=== PATIENT | female | born 1995 | race Caucasian/White ===

== ENCOUNTER 2020-10-21 10:35 | Emergency (ER) | payer MEDICAID, SELFPAY ==
--- NOTE | 2020-10-21 10:41 | ED.ABDPAIN ---
HPI - Abdominal Pain General Chief Complaint: Abdominal Pain Stated Complaint: ABD PAIN Time Seen by Provider: 10/21/20 10:41 Source: patient Mode of arrival: ambulatory Limitations: no limitations History of Present Illness HPI narrative: one week of palpitations and epigastric pain. Diarrhea for a week. No fever. Patient has sharp pain when she eats MD elicited complaint: abdominal pain Pertinent past history: none Onset (ago): day(s) Pain Consistency: intermittent Location: epigastric Severity: mild Quality: sharp Radiation: none Migration to: no migration Exacerbating factors: eating Relieving factors: nothing Associated symptoms: diarrhea and other (palpitations) Related Data Previous Rx's Medication Instructions Recorded famotidine [Pepcid] 20 mg PO DAILY #20 tab 10/21/20 Allergies Allergy/AdvReac Type Severity Reaction Status Date / Time No Known Allergies Allergy Verified 10/21/20 10:46 Review of Systems Constitutional: Reports no additional constitutional complaints Eyes: Reports no additional eye complaints Denies dizziness Cardiovascular: Reports no additional cardiovascular complaints Respiratory: Reports as per HPI Gastrointestinal: Reports no additional gastrointestinal complaints Genitourinary: Reports no additional female genitourinary complaints Musculoskeletal: Reports no additional musculoskeletal complaints Skin/Breast: Denies rash Reports system reviewed and no additional complaints, except as documented, Denies dizziness and Denies Sensory deficit (Neuro) Psychiatric: Denies anxiety Physical Exam Vital Signs: Vital Signs: Last Vital Signs Temp 98.3 F 10/21/20 10:42 Pulse 75 10/21/20 10:42 Resp 14 10/21/20 10:42 BP 143/72 H 10/21/20 10:42 Pulse Ox 99 10/21/20 10:42 Body Mass Index 27.1 Const: General: healthy appearing Nutritional Appearance: average body habitus Orientation/consciousness: oriented to person and patient oriented x3 Limitations: no limitations HENMT: Head: Yes normal to inspection Ears: external ears normal General nose exam: Normal external nose present Mouth: Normal oral and palatal mucosa present and oropharynx normal Throat: Yes posterior oropharynx normal Eyes: General: appearance normal, both eyes and all related structures Neck: Other: supple Neck: Yes normal visual inspection Chest: Chest palpation & inspection: normal inspection of the chest Resp: Auscultation: clear to auscultation bilaterally Cardio: Jugular venous distension: no JVD Rate: regular rate Rhythm: regular rhythm Heart sounds: S1 normal heart sound present and S2 normal heart sound present GI: Inspection: Yes normal to inspection Palpation (GI): Soft to palpation, nontender and No hepatosplenomegaly present Auscultation: normal bowel sounds : General: Yes no CVA tenderness Back/Spine/Pelvis: Back: no CVA tenderness Skin: General skin exam: no rashes or lesions noted Neuro: General: oriented to person and patient oriented x3 Cranial nerves: Yes CN's II-XII intact bilaterally Motor exam (neuro): 5/5 motor strength present throughout Sensory Exam: No Sensory deficit (Neuro) Extrem: General: Yes normal to inspection Psych: Appearance: grossly normal Course Reevaluation(s) Reevaluation #1: Patient with normal labs and ekg, mild epigastric pain. Will start pepcid for gastritis Time: 12:09 MDM - Abdominal Pain Lab Data Result diagrams: 10/21/20 11:05 10/21/20 11:05 Labs: Lab Results 10/21/20 10/21/20 10/21/20 Range/Units 11:05 11:05 11:05 WBC 6.8 (4.8-10.8) X10*3/uL RBC 4.63 (4.20-5.50) X10*6/uL Hgb 14.6 (12.0-16.0) g/dl Hct 42.8 (37-47) % MCV 92.4 (80-98) fL MCH 31.5 (27.0-33.0) pg MCHC 34.1 (31.0-35.0) g/dl RDW 11.9 (11.0-16.0) % Plt Count 357 (160-400) X10*3/uL MPV 8.9 L (9.4-12.3) fL Immature Gran % (Auto) 0.3 (0.0-0.4) % Neut % (Auto) 29.3 L (45-73) % Lymph % (Auto) 59.4 H (20-40) % [place] % (Auto) 9.2 (2-11) % Eos % (Auto) 1.5 (0-4) % Baso % (Auto) 0.3 (0-2) % Lymph # (Auto) 4.0 (1.2-4.9) X10*3/uL [place] # (Auto) 0.6 (0.1-1.2) X10*3/uL Eos # (Auto) 0.1 (0.0-0.4) X10*3/uL Baso # (Auto) 0.0 (0.0-0.2) X10*3/uL Abs Immat Gran (auto) 0.02 (0.00-0.03) X10*3/uL Absolute Neuts (auto) 2.0 (2.0-8.3) X10*3/uL Absolute Nucleated RBC 0.000 (0.0-0.012) X10*3/uL Nucleated RBC % (auto) 0.0 (0.0-0.2) /100WBC Sodium 140 (135-145) mmol/L Potassium 3.9 (3.3-5.1) mmol/L Chloride 106 (96-108) mmol/L Carbon Dioxide 25 (22-29) mmol/L Anion Gap 13 (12-20) BUN 8 L (9-16) mg/dL Creatinine 0.80 (0.5-1.4) mg/dL Estim Creat Clear Calc 98.7 Estimated GFR > 60 Random Glucose 88 (60-115) mg/dL Calcium 9.7 (8.4-10.2) mg/dL Total Bilirubin 0.3 (0.0-1.0) mg/dL Direct Bilirubin < 0.2 (0.0-0.5) mg/dL AST 13 (5-31) U/L ALT 10 (0-31) U/L Alkaline Phosphatase 73 (39-117) U/L Total Protein 7.3 (6.5-8.0) g/dL Albumin 4.4 (3.5-5.0) g/dL Lipase 55 (8-78) U/L Urine Color YELLOW Urine Appearance CLEAR Urine pH 6.0 (5.0-8.0) Ur Specific [place] 1.025 (1.005-1.025) Urine Protein NEG (NEG-TRACE) MG/DL Urine Glucose (UA) NEG (NEG) MG/DL Urine Ketones NEG (NEG) MG/DL Urine Blood NEG (NEG) Urine Nitrite NEG (NEG) Ur Leukocyte Esterase NEG (NEG) Urine Test (NEGATIVE) 10/21/20 Range/Units 11:05 WBC (4.8-10.8) X10*3/uL RBC (4.20-5.50) X10*6/uL Hgb (12.0-16.0) g/dl Hct (37-47) % MCV (80-98) fL MCH (27.0-33.0) pg MCHC (31.0-35.0) g/dl RDW (11.0-16.0) % Plt Count (160-400) X10*3/uL MPV (9.4-12.3) fL Immature Gran % (Auto) (0.0-0.4) % Neut % (Auto) (45-73) % Lymph % (Auto) (20-40) % [place] % (Auto) (2-11) % Eos % (Auto) (0-4) % Baso % (Auto) (0-2) % Lymph # (Auto) (1.2-4.9) X10*3/uL [place] # (Auto) (0.1-1.2) X10*3/uL Eos # (Auto) (0.0-0.4) X10*3/uL Baso # (Auto) (0.0-0.2) X10*3/uL Abs Immat Gran (auto) (0.00-0.03) X10*3/uL Absolute Neuts (auto) (2.0-8.3) X10*3/uL Absolute Nucleated RBC (0.0-0.012) X10*3/uL Nucleated RBC % (auto) (0.0-0.2) /100WBC Sodium (135-145) mmol/L Potassium (3.3-5.1) mmol/L Chloride (96-108) mmol/L Carbon Dioxide (22-29) mmol/L Anion Gap (12-20) BUN (9-16) mg/dL Creatinine (0.5-1.4) mg/dL Estim Creat Clear Calc Estimated GFR Random Glucose (60-115) mg/dL Calcium (8.4-10.2) mg/dL Total Bilirubin (0.0-1.0) mg/dL Direct Bilirubin (0.0-0.5) mg/dL AST (5-31) U/L ALT (0-31) U/L Alkaline Phosphatase (39-117) U/L Total Protein (6.5-8.0) g/dL Albumin (3.5-5.0) g/dL Lipase (8-78) U/L Urine Color Urine Appearance Urine pH (5.0-8.0) Ur Specific [place] (1.005-1.025) Urine Protein (NEG-TRACE) MG/DL Urine Glucose (UA) (NEG) MG/DL Urine Ketones (NEG) MG/DL Urine Blood (NEG) Urine Nitrite (NEG) Ur Leukocyte Esterase (NEG) Urine Test NEGATIVE (NEGATIVE) ECG Data Attestation: I personally reviewed and interpreted this ECG as follows: Interpretation: sinus rate of 75, no st or twave changes Discharge Plan Discharge Clinical Impression: Abdominal pain Qualifiers: Abdominal location: epigastric Qualified Code(s): R10.13 - Epigastric pain Gastritis Qualifiers: Gastritis type: other gastritis Chronicity: acute Gastritis bleeding: without bleeding Qualified Code(s): K29.00 - Acute gastritis without bleeding Patient Disposition: Home, Self-Care Instructions: Gastritis (ED) Prescriptions: New famotidine [Pepcid] 20 mg tablet 20 mg PO DAILY Qty: 20 RF: 0 PMFSH Past Medical History Medical History (Updated 10/21/20 @ 12:10 by Geovany Connell MD) No known health problems Social History Social History Advance Directives: No Advance Directives Information Provided: Yes
[2020-10-21 10:42] VITALS: BP 143/72; PULSE 75; RESP 14; TEMP 36.8; O2SAT 99; BMI 27.1
--- NOTE | 2020-10-21 10:46 | ECG_ITS ---
Test Reason : ABDOMINAL PAIN Blood Pressure : / mmHG Vent. Rate : 076 BPM Atrial Rate : 076 BPM P-R Int : 136 ms QRS Dur : 086 ms QT Int : 368 ms P-R-T Axes : 052 051 052 degrees QTc Int : 414 ms Normal sinus rhythm Normal ECG No previous ECGs available Referred By: Geovany Connell Electronically Signed By:VETO ISLAS MD
[2020-10-21] MEDS: Lidocaine HCl Viscous 2 % 15 ML SOLUTION MUCOUS MEM (10:55)
[2020-10-21] MEDS: Famotidine 20 MG TABLET PO (10:55)
[2020-10-21] MEDS: PHENobarb/Hyoscy/Atropine/Scop 10 ML ELIXIR PO (10:55)
[2020-10-21] MEDS: Magnesium Hydrox/Alum Hydrox 30 ML ORAL.SUSP PO (10:55)
[2020-10-21 11:12] LABS: MANUAL DIFF FLAG NO
[2020-10-21 11:14] LABS: Basophils Percent Auto 0.3 % (0-2); Eosinophils Absolute Auto 0.1 X10*3/uL (0.0-0.4); Eosinophils Percent Auto 1.5 % (0-4); Hematocrit 42.8 % (37-47); Hemoglobin 14.6 g/dl (12.0-16.0); Imm Gran Abs Auto 0.02 X10*3/uL (0.00-0.03); Imm Gran Pct Auto 0.3 % (0.0-0.4); Lymphocytes Percent Auto 59.4 % (20-40); Mean Corpuscular HGB Conc 34.1 g/dl (31.0-35.0); Mean Corpuscular Hemoglobin 31.5 pg (27.0-33.0); Mean Corpuscular Volume 92.4 fL (80-98); Mean Platelet Volume 8.9 fL (9.4-12.3); Monocytes Absolute Auto 0.6 X10*3/uL (0.1-1.2); Monocytes Percent Auto 9.2 % (2-11); Neutrophils Percent Auto 29.3 % (45-73); Platelet Count 357 X10*3/uL (160-400); Red Blood Count 4.63 X10*6/uL (4.20-5.50); Red Cell Distribution Width 11.9 % (11.0-16.0); White Blood Count 6.8 X10*3/uL (4.8-10.8)
[2020-10-21 11:15] LABS: Glucose Urine UA NEG (NEG); Leukocyte Esterase Urine NEG (NEG); Nitrite Urine NEG (NEG); Specific Gravity - Urine 1.025 (1.005-1.025); Urine Blood NEG (NEG); Urine Ketones NEG (NEG); Urine Protein NEG (NEG-TRACE)
[2020-10-21 11:17] LABS: Appearance Urine CLEAR; Color Urine YELLOW; UPreg QC Valid YES; Urine Pregnancy NEGATIVE (NEGATIVE)
[2020-10-21 11:40] LABS: Alanine Aminotransferase 10 U/L (0-31); Albumin Level 4.4 g/dL (3.5-5.0); Alkaline Phosphatase 73 U/L (39-117); Anion Gap 13 (12-20); Aspartate Amino Transferase 13 U/L (5-31); Bilirubin Direct < 0.2 mg/dL (0.0-0.5); Bilirubin Total 0.3 mg/dL (0.0-1.0); Blood Urea Nitrogen 8 mg/dL (9-16); Calcium 9.7 mg/dL (8.4-10.2); Carbon Dioxide 25 mmol/L (22-29); Chloride 106 mmol/L (96-108); Creatinine Clr Calc Pharmacy 98.7; Estimated Glomerular Filt Rate > 60; Glucose Random 88 mg/dL (60-115); Lipase 55 U/L (8-78); Potassium 3.9 mmol/L (3.3-5.1); Sodium 140 mmol/L (135-145); Total Protein 7.3 g/dL (6.5-8.0)
== END 2020-10-21 12:38 | disposition home or self-care (01) ==
PROVIDERS: Emergency Provider Emergency Medicine
DX: R10.13 Epigastric pain (principal); K29.00 Acute gastritis without bleeding
CPT/HCPCS: 36415; 80048; 80076; 81003; 81025; 83690; 85025; 93005; 99284

== ENCOUNTER 2020-10-31 10:50 | Emergency (ER) | payer MEDICAID, SELFPAY ==
--- NOTE | ~2020-10-31 | US_ITS ---
EXAMINATION: ULTRASOUND OF LEFT KIDNEY. CLINICAL INFORMATION: Left flank pain. COMPARISON: None TECHNIQUE: Grayscale and color Doppler exam performed at the left kidney only. FINDINGS: There is no hydronephrosis. No renal calculus. The kidney is of normal size and contour with normal cortical thickness and normal echogenicity of the cortex. No fluid collections in the perinephric space. Left kidney measures 9.3 x 5.4 x 4.4 cm. US/US renal LT IMPRESSION: Normal ultrasound of left kidney.
--- NOTE | ~2020-10-31 | US_ITS ---
EXAMINATION: ULTRASOUND PELVIC, COMPLETE CLINICAL INFORMATION: Left lower quadrant pain. COMPARISON: None. TECHNIQUE: Transvaginal: Used to better visualize pelvic structures Transabdominal: Not adequate for visualization Spectral Doppler and color Doppler exam was utilized. LMP: 09/23/2020 FINDINGS: UTERUS: Uterus is unremarkable. Uterus measures 8.6 x 4.1 x 5.8 cm. Endometrial thickness 1.1 cm. Uterus is anteverted and anteflexed. There is nabothian cyst at the cervix ADNEXA: Ovarian vascularity:Doppler demonstrates both arterial and venous vascular flow in the right and left ovary. No evidence of ovarian torsion. Right Ovary: 4.1 x 2.1 x 2 cm. Volume 9.0 mL Left Ovary: 3.9 x 2.4 x 2.4 cm. Volume 11.8 mL. Corpus luteum cyst measuring 1.2 cm. Cul-de-sac: Small volume of anechoic fluid in the cul-de-sac. US/US pelvic and transvaginal IMPRESSION: Normal ultrasound of the pelvis. Corpus luteum cyst present in the left ovary.
--- NOTE | ~2020-10-31 | US_ITS ---
EXAMINATION: ULTRASOUND PELVIC, COMPLETE CLINICAL INFORMATION: Left lower quadrant pain. COMPARISON: None. TECHNIQUE: Transvaginal: Used to better visualize pelvic structures Transabdominal: Not adequate for visualization Spectral Doppler and color Doppler exam was utilized. LMP: 09/23/2020 FINDINGS: UTERUS: Uterus is unremarkable. Uterus measures 8.6 x 4.1 x 5.8 cm. Endometrial thickness 1.1 cm. Uterus is anteverted and anteflexed. There is nabothian cyst at the cervix ADNEXA: Ovarian vascularity:Doppler demonstrates both arterial and venous vascular flow in the right and left ovary. No evidence of ovarian torsion. Right Ovary: 4.1 x 2.1 x 2 cm. Volume 9.0 mL Left Ovary: 3.9 x 2.4 x 2.4 cm. Volume 11.8 mL. Corpus luteum cyst measuring 1.2 cm. Cul-de-sac: Small volume of anechoic fluid in the cul-de-sac. US/US pelvic ovarian doppler IMPRESSION: Normal ultrasound of the pelvis. Corpus luteum cyst present in the left ovary.
[2020-10-31 11:42] VITALS: BP 117/80; PULSE 72; RESP 18; TEMP 37; O2SAT 99; BMI 27.8
[2020-10-31 15:00] LABS: Glucose Urine UA NEG (NEG); Leukocyte Esterase Urine NEG (NEG); Nitrite Urine NEG (NEG); Specific Gravity - Urine 1.025 (1.005-1.025); Urine Blood NEG (NEG); Urine Ketones 15 MG/DL (NEG); Urine Protein NEG (NEG-TRACE)
--- NOTE | 2020-10-31 15:01 | ED_ITS ---
HPI - Abdominal Pain General Chief Complaint: Abdominal Pain Stated Complaint: abd pain Time Seen by Provider: 10/31/20 14:38 Source: patient Mode of arrival: ambulatory Limitations: no limitations History of Present Illness HPI narrative: 25-year-old female who presents emergency department for evaluation of a positive home test and lower abdominal pain. The patient is a , she has a 6-year-old, she states that her last menstrual period was 09/23/2020 (she would be 5 weeks and 3 days if her prior to the test was accurate). The patient took a home test 4 days prior and it was positive. She states that 2 days prior to evaluation she developed left- sided abdominal pain. She points to her left lower quadrant when asked to localize the pain. The pain is an intermittent pressure-like pain that does radiate to her back. The pain is 6/10 at its worst. She has had urinary frequency but no dysuria. She has had associated nausea but no vomiting. She states that the pain got worse today, therefore she came to the emergency department for evaluation. She states that she has had occasional headaches. She denied fever which chills, chest pain, shortness of breath, change in bowel movements. Related Data Previous Rx's Medication Instructions Recorded famotidine 20 mg tablet (Pepcid) 20 mg PO DAILY #20 tab 10/21/20 Allergies Allergy/AdvReac Type Severity Reaction Status Date / Time No Known Allergies Allergy Verified 10/21/20 10:46 Review of Systems Review of Systems Yes all other systems are reviewed and are negative Physical Exam Vital Signs: Vital Signs: Last Vital Signs Temp 98.6 F 10/31/20 11:42 Pulse 72 10/31/20 11:42 Resp 18 10/31/20 11:42 BP 117/80 10/31/20 11:42 Pulse Ox 99 10/31/20 11:42 Body Mass Index 27.8 Const: General: cooperative and no acute distress Or ientation/consciousness: oriented to person and oriented to place Limitat ions: no limitations HENMT: Head: Yes normal to inspection, Yes normocephalic and Yes atraumatic Ears: external ears normal General nose exam: Normal external nose present Face and sinus: Yes normal facial exam Mouth: Normal oral and palatal mucosa present Throat: Yes posterior oropharynx normal Eyes: General: appearance normal, both eyes and all related structures Pupils: Equal, round and reactive pupils present Neck: Neck: Yes normal visual inspection, Yes no lymphadenopathy, Yes trachea midline and Yes supple Chest: Chest palpation & inspection: normal inspection of the chest and normal palpation of entire chest wall Resp: Effort & Inspection: normal respiratory effort and able to speak in complete sentences Auscultation: clear to auscultation bilaterally Cardio: Rate: regular rate Rhythm: regular rhythm Heart sounds: S1 normal heart sound present, S2 normal heart sound present and no murmurs GI: Inspection: Yes normal to inspection Palpation (GI): Soft to palpation, Tenderness to palpation present (GI) (Moderate) in the LLQ (Moderate) and suprapubicly (Moderate) and no guarding Auscultation: normal bowel sounds : General: Yes no CVA tenderness Back/Spine/Pelvis: Back: no CVA tenderness Skin: General skin exam: no rashes or lesions noted Neuro: General: oriented to person and oriented to place Cranial nerves: Yes CN's II-XII intact bilaterally and Yes Equal, round and reactive pupils present Cognition (Neuro): normal cognition Motor exam (neuro): 5/5 motor strength present throughout Extrem: General: Yes normal to inspection Psych: Appearance: grossly normal Speech and movement: Normal speech and movement present Affect: normal affect Attitude: cooperative Thought process: Normal thought process present Thought content: Normal thought con tent present Course Course Course Narrative: 25-year-old female who presents emergency department for evaluation of a positive home test which she performed 4 days prior and left lower abdominal pain x2 days. Patient's last menstrual period was 09/23/2020 which would make her 5 weeks and 3 days there for test was accurate. The patient's examination did reveal left lower quadrant tenderness and suprapubic tenderness. I did order laboratory evaluation to include CBC, CMP, lipase. UA, urine , quantitative beta-hCG and ABO. Patient will be treated with Tylenol 975 mg orally. MDM - Abdominal Pain Lab Data Result diagrams: 10/31/20 16:19 10/31/20 16:20 Labs: Lab Results 10/31/20 10/31/20 10/31/20 Range/Units 14:48 14:48 16:19 WBC 6.3 (4.8-10.8) X10*3/uL RBC 4.61 (4.20-5.50) X10*6/uL Hgb 14.5 (12.0-16.0) g/dl Hct 42.0 (37-47) % MCV 91.1 (80-98) fL MCH 31.5 (27.0-33.0) pg MCHC 34.5 (31.0-35.0) g/dl RDW 11.7 (11.0-16.0) % Plt Count 331 (160-400) X10*3/uL MPV 9.1 L (9.4-12.3) fL Immature Gran % (Auto) 0.5 H (0.0-0.4) % Neut % (Auto) 47.9 (45-73) % Lymph % (Auto) 42.9 H (20-40) % [place] % (Auto) 7.9 (2-11) % Eos % (Auto) 0.6 (0-4) % Baso % (Auto) 0.2 (0-2) % Lymph # (Auto) 2.7 (1.2-4.9) X10*3/uL [place] # (Auto) 0.5 (0.1-1.2) X10*3/uL Eos # (Auto) 0.0 (0.0-0.4) X10*3/uL Baso # (Auto) 0.0 (0.0-0.2) X10*3/uL Abs Immat Gran (auto) 0.03 (0.00-0.03) X10*3/uL Absolute Neuts (auto) 3.0 (2.0-8.3) X10*3/uL Absolute Nucleated RBC 0.000 (0.0-0.012) X10*3/uL Nucleated RBC % (auto) 0.0 (0.0-0.2) /100WBC Sodium (135-145) mmol/L Potassium (3.3-5.1) mmol/L Chloride (96-108) mmol/L Carbon Dioxide (22-29) mmol/L Anion Gap (12-20) BUN (9-16) mg/dL Creatinine (0.5-1.4) mg/dL Estim Creat Clear Calc Estimated GFR Random Glucose (60-115) mg/dL Calcium (8.4-10.2) mg/dL Total Bilirubin (0.0-1.0) mg/dL AST (5-31) U/L ALT (0-31) U/L Alkaline Phosphatase (39-117) U/L Total Protein (6.5-8.0) g/dL Albumin (3.5-5.0) g/dL Lipase (8-78) U/L Beta HCG, Quant mIU/mL Urine Color YELLOW Urine Appearance CLEAR Urine pH 6.0 (5.0-8.0) Ur Specific [place] 1.025 (1.005-1.025) Urine Protein NEG (NEG-TRACE) MG/DL Urine Glucose (UA) NEG (NEG) MG/DL Urine Ketones 15 (NEG) MG/DL Urine Blood NEG (NEG) Urine Nitrite NEG (NEG) Ur Leukocyte Esterase NEG (NEG) Urine Test NEGATIVE (NEGATIVE) Blood Type 10/31/20 10/31/20 10/31/20 Range/Units 16:19 16:19 16:20 WBC (4.8-10.8) X10*3/uL RBC (4.20-5.50) X10*6/uL Hgb (12.0-16.0) g/dl Hct (37-47) % MCV (80-98) fL MCH (27.0-33.0) pg MCHC (31.0-35.0) g/dl RDW (11.0-16.0) % Plt Count (160-400) X10*3/uL MPV (9.4-12.3) fL Immature Gran % (Auto) (0.0-0.4) % Neut % (Auto) (45-73) % Lymph % (Auto) (20-40) % [place] % (Auto) (2-11) % Eos % (Auto) (0-4) % Baso % (Auto) (0-2) % Lymph # (Auto) (1.2-4.9) X10*3/uL [place] # (Auto) (0.1-1.2) X10*3/uL Eos # (Auto) (0.0-0.4) X10*3/uL Baso # (Auto) (0.0-0.2) X10*3/uL Abs Immat Gran (auto) (0.00-0.03) X10*3/uL Absolute Neuts (auto) (2.0-8.3) X10*3/uL Absolute Nucleated RBC (0.0-0.012) X10*3/uL Nucleated RBC % (auto) (0.0-0.2) /100WBC Sodium 137 (135-145) mmol/L Potassium 4.0 (3.3-5.1) mmol/L Chloride 105 (96-108) mmol/L Carbon Dioxide 25 (22-29) mmol/L Anion Gap 11 L (12-20) BUN 8 L (9-16) mg/dL Creatinine 0.74 (0.5-1.4) mg/dL Estim Creat Clear Calc 108.0 Estimated GFR > 60 Random Glucose 95 (60-115) mg/dL Calcium 9.3 (8.4-10.2) mg/dL Total Bilirubin 0.7 (0.0-1.0) mg/dL AST 16 (5-31) U/L ALT 14 (0-31) U/L Alkaline Phosphatase 64 (39-117) U/L Total Protein 7.1 (6.5-8.0) g/dL Albumin 4.4 (3.5-5.0) g/dL Lipase 38 (8-78) U/L Beta HCG, Quant 12 mIU/mL Urine Color Urine Appearance Urine pH (5.0-8.0) Ur Specific [place] (1.005-1.025) Urine Protein (NEG-TRACE) MG/DL Urine Glucose (UA) (NEG) MG/DL Urine Ketones (NEG) MG/DL Urine Blood (NEG) Urine Nitrite (NEG) Ur Leukocyte Esterase (NEG) Urine Test (NEGATIVE) Blood Type AB Positive Discharge Plan Discharge Clinical Impression: Acute left flank pain Abdominal pain Qualifiers: Abdominal location: left lower quadrant Qualified Code(s): R10.32 - Left lower quadrant pain Patient Disposition: Home, Self-Care Instructions: Flank Pain (ED) Additional Instructions: Your urine test was negative for infections. Your blood work was normal. Your urine test was negative. We checked your blood to see if you are . The blood test checks for a hormone called beta-hCG. This is a hormone that babies make and usually it is undetectable in women that are not . Sometimes, women that are not do make this hormone and this can cause false positive test. When a woman is 4-6 weeks the beta-hCG is between 2000 and 3000. Your beta hCG today was 12. At this time I do not think that you are however if you do not have a menstrual period in 2-3 weeks then you need a repeat blood test (quantitative beta-hCG) by your direct entry midwife. The ultrasounds of your pelvis and kidneys did not reveal any abnormalities, you do not have any ovarian cyst or any evidence for kidney stones. I do not have a clear cause for your abdominal and flank pain. Take ibuprofen 200 mg pills, 3 pills every 6 hours as needed for pain. Take Tylenol (acetaminophen) 500 mg pills, 2 pills every 4 to 6 hours as needed for pain. Follow-up with your doctor in 2 days. Follow-up with your direct entry midwife if you do not have a menstrual period in 2-3 weeks. Please return to the emergency department if your symptoms get worse or if you develop any symptoms that are concerning to you. Prescriptions: No Action famotidine [Pepcid] 20 mg tablet 20 mg PO DAILY Qty: 20 RF: 0 PMFSH Past Medical History PMFSH Narrative: Past medical history: GERD. Social history: She denies tobacco, alcohol and drug use. Medical History (Updated 10/31/20 @ 18:37 by Veto Flores MD) No known health problems Social History Social History Advance Directives: No Advance Directives Information Provided: No Patient : Yes
[2020-10-31 15:05] LABS: Appearance Urine CLEAR; Color Urine YELLOW
[2020-10-31 15:06] LABS: UPreg QC Valid YES; Urine Pregnancy NEGATIVE (NEGATIVE)
[2020-10-31] MEDS: Acetaminophen 325 MG TABLET 975 MG PO (15:31)
[2020-10-31 16:29] LABS: MANUAL DIFF FLAG NO
[2020-10-31 16:32] LABS: Basophils Percent Auto 0.2 % (0-2); Eosinophils Percent Auto 0.6 % (0-4); Hemoglobin 14.5 g/dl (12.0-16.0); Imm Gran Abs Auto 0.03 X10*3/uL (0.00-0.03); Imm Gran Pct Auto 0.5 % (0.0-0.4); Lymphocytes Absolute Auto 2.7 X10*3/uL (1.2-4.9); Lymphocytes Percent Auto 42.9 % (20-40); Mean Corpuscular HGB Conc 34.5 g/dl (31.0-35.0); Mean Corpuscular Hemoglobin 31.5 pg (27.0-33.0); Mean Corpuscular Volume 91.1 fL (80-98); Mean Platelet Volume 9.1 fL (9.4-12.3); Monocytes Absolute Auto 0.5 X10*3/uL (0.1-1.2); Monocytes Percent Auto 7.9 % (2-11); Neutrophils Percent Auto 47.9 % (45-73); Platelet Count 331 X10*3/uL (160-400); Red Blood Count 4.61 X10*6/uL (4.20-5.50); Red Cell Distribution Width 11.7 % (11.0-16.0); White Blood Count 6.3 X10*3/uL (4.8-10.8)
[2020-10-31 17:00] LABS: Alanine Aminotransferase 14 U/L (0-31); Albumin Level 4.4 g/dL (3.5-5.0); Alkaline Phosphatase 64 U/L (39-117); Anion Gap 11 (12-20); Aspartate Amino Transferase 16 U/L (5-31); Bilirubin Total 0.7 mg/dL (0.0-1.0); Blood Urea Nitrogen 8 mg/dL (9-16); Calcium 9.3 mg/dL (8.4-10.2); Carbon Dioxide 25 mmol/L (22-29); Chloride 105 mmol/L (96-108); Estimated Glomerular Filt Rate > 60; Glucose Random 95 mg/dL (60-115); Sodium 137 mmol/L (135-145); Total Protein 7.1 g/dL (6.5-8.0)
[2020-10-31 17:00] LABS: Lipase 38 U/L (8-78)
[2020-10-31 17:08] LABS: HCG Quantitative 12 mIU/mL
== END 2020-10-31 18:42 | disposition home or self-care (01) ==
PROVIDERS: Emergency Provider Emergency Medicine Emergency Medical Services; PCP Family Medicine
DX: O26.91 Pregnancy related conditions, unspecified, first trimester (principal); R10.32 Left lower quadrant pain; Z3A.01 Less than 8 weeks gestation of pregnancy
CPT/HCPCS: 36415; 76775; 76830; 76856; 80053; 81003; 81025; 83690; 84702; 85025; 86900; 86901; 93975; 99283; 99284

== ENCOUNTER 2020-11-10 12:20 | Emergency (ER) | payer MEDICAID, SELFPAY ==
--- NOTE | ~2020-11-10 | XR_ITS ---
EXAMINATION: XR CHEST CLINICAL INFORMATION: SOB. COMPARISON: None TECHNIQUE: 2 views of the chest were obtained. FINDINGS: No significant abnormality is noted involving the heart, lungs, mediastinum, bony thorax or soft tissues. XR/XR chest 2V IMPRESSION: Unremarkable chest examination.
[2020-11-10 12:41] VITALS: BP 132/81; PULSE 93; RESP 16; TEMP 36.5; O2SAT 99; BMI 27.3
[2020-11-10 13:43] VITALS: BP 125/74; PULSE 77; TEMP 37; O2SAT 100
--- NOTE | 2020-11-10 14:03 | ECG_ITS ---
Test Reason : SHORT OF BREATH Blood Pressure : / mmHG Vent. Rate : 081 BPM Atrial Rate : 081 BPM P-R Int : 132 ms QRS Dur : 088 ms QT Int : 376 ms P-R-T Axes : 057 061 051 degrees QTc Int : 436 ms Normal sinus rhythm Normal ECG When compared with ECG of 21-OCT-2020 11:21, No significant change was found Referred By: Kaylyn Polo Electronically Signed By:TERRENCE CODY
--- NOTE | 2020-11-10 14:06 | ED_ITS ---
HPI - SOB/Dyspnea General Chief Complaint: Dyspnea Stated Complaint: sob Time Seen by Provider: 11/10/20 13:31 Source: patient Mode of arrival: ambulatory Limitations: no limitations History of Present Illness HPI Narrative: 25-year-old female who is otherwise healthy presents for 2 weeks of intermittent shortness of breath that comes and goes, that starts at rest. In addition, patient has had right ear pressure. No chest pain, no nausea, no vomiting, no sore throat, runny nose, no fevers. Patient is on control, has never had a blood clot, has no unilateral calf swelling, no recent surgeries. No history of asthma. Patient does not currently feel short of breath. Patient has had 1 COVID vaccination MD elicited complaint: shortness of breath Related Data Previous Rx's Medication Instructions Recorded famotidine 20 mg tablet (Pepcid) 20 mg PO DAILY #20 tab 10/21/20 amoxicillin 875 mg-potassium 1 tab PO BID 10 Days #20 tab 11/10/20 clavulanate 125 mg tablet (Augmentin) Allergies Allergy/AdvReac Type Severity Reaction Status Date / Time No Known Allergies Allergy Verified 10/21/20 10:46 Review of Systems Constitutional: Constitutional: Denies body ache(s), Denies chills, Denies fatigue, Denies fever(s), Denies headache(s), Denies malaise and Denies weakness Eyes: Eyes: Denies blurry vision, Denies change in vision and Denies diplopia ENT: Denies vertigo, Denies dizziness, Denies ear discharge, Reports otalgia, Denies headache(s), Denies nasal congestion, Denies nasal discharge, Denies sore throat and Denies throat swelling Cardiovascular: Cardiovascular: Reports chest pain at rest, Denies syncope, Denies leg edema, Denies lightheadedness, Denies palpitations and Reports dyspnea Respiratory: Respiratory: Denies chest congestion, Denies cough, Denies pain on inspiration, Reports dyspnea and Denies wheezing Gastrointestinal: Gastrointestinal: Reports abdominal pain, Denies hematochezia, Denies constipation, Denies diarrhea, Denies nausea and Denies vomiting Genitourinary: Genitourinary: Reports no additional female genitourinary complaints Musculoskeletal: Musculoskeletal: Reports no additional musculoskeletal complaints Integumentary/Breasts: Skin/Breast: Denies erythema and Denies rash Neurologic: Denies confusion, Denies vertigo, Denies dizziness, Denies syncope, Denies headache(s) and Denies weakness Psychiatric: Psychiatric: Denies anxiety, Denies confusion and Denies depression Endocrine: Endocrine: Denies fatigue and Denies palpitations Allergic/Immunologic: Allergic/Immunologic: Denies throat swelling and Denies wheezing PMFSH Past Medical History Medical History (Updated 11/10/20 @ 15:47 by KATIE Springer) No known health problems Social History Social History Alcohol intake: never Patient Tobacco Use Status: Never used Tobacco Physical Exam Vital Signs: Vital Signs: Last Vital Signs Temp 98.6 F 11/10/20 13:43 Pulse 77 11/10/20 13:43 Resp 16 11/10/20 12:41 BP 125/74 11/10/20 13:43 Pulse Ox 100 11/10/20 13:43 Body Mass Index 27.3 Const: General: No confusion Nutritional Appearance: well nourished Orientation/consciousness: No confusion Limitations: no limitations HENMT: Head: Yes normal to inspection, Yes normocephalic and Yes atraumatic Ears: TM normal on the left, EAC's normal and TM abnormal bulging on the right and wth effusion purulent on the right; Negative for not erythematous General nose exam: Normal external nose present, Normal nares present and no nasal discharge noted Face and sinus: Yes normal facial exam Mouth: Normal oral and palatal mucosa present Throat: Yes posterior oropharynx normal, Yes tonsils normal, Yes uvula midline and No postnasal drainage Eyes: Conjunctivae: conjunctivae normal Pupils: Equal, round and reactive pupils present EOM: EOMs intact bilaterally Neck: Neck: Yes full ROM, Yes no lymphadenopathy and Yes supple Resp: Effort & Inspection: normal respiratory effort and able to speak in complete sentences Auscultation: clear to auscultation bilaterally, no crackles, no rales, no rhonchi and no wheezes Cardio: Rate: regular rate Rhythm: regular rhythm Heart sounds: S1 normal heart sound present and S2 normal heart sound present GI: Inspection: Yes normal to inspection Palpation (GI): Soft to palpation, nontender, no guarding and not rigid Percussion: Yes normal to percussion Auscultation: normal bowel sounds Skin: General skin exam: no rashes or lesions noted Neuro: General: No confusion Cranial nerves: Yes Equal, round and reactive pupils present Extrem: General: Yes normal to inspection and Yes full ROM Psych: Appearance: grossly normal Affect: normal affect Attitude: cooperative Thought process: Normal thought process present Course Course Course Narrative: 25-year-old female presents for 2 weeks of intermittent shortness of breath at rest. Patient also has right ear pressure. On exam, patient is satting 100% on room air, with a heart rate of 77. No pleuritic pain. Lungs clear to auscultation bilaterally. Right ear has purulence Infusion. Will get COVID test, chest x-ray, labs, EKG. Patient has negative labs, negative troponin, D-dimer is negative, chest x-ray is unremarkable, COVID is negative. EKG shows normal sinus no ischemia. Will treat for right ear effusion. MDM - SOB/Dyspnea Lab Data Result diagrams: 11/10/20 14:36 11/10/20 14:36 Labs: Lab Results 11/10/20 11/10/20 11/10/20 Range/Units 14:31 14:36 14:36 WBC 5.9 (4.8-10.8) X10*3/uL RBC 4.76 (4.20-5.50) X10*6/uL Hgb 15.2 (12.0-16.0) g/dl Hct 44.0 (37-47) % MCV 92.4 (80-98) fL MCH 31.9 (27.0-33.0) pg MCHC 34.5 (31.0-35.0) g/dl RDW 11.8 (11.0-16.0) % Plt Count 367 (160-400) X10*3/uL MPV 8.8 L (9.4-12.3) fL Immature Gran % (Auto) 0.2 (0.0-0.4) % Neut % (Auto) 52.7 (45-73) % Lymph % (Auto) 39.0 (20-40) % [place] % (Auto) 7.3 (2-11) % Eos % (Auto) 0.3 (0-4) % Baso % (Auto) 0.5 (0-2) % Lymph # (Auto) 2.3 (1.2-4.9) X10*3/uL [place] # (Auto) 0.4 (0.1-1.2) X10*3/uL Eos # (Auto) 0.0 (0.0-0.4) X10*3/uL Baso # (Auto) 0.0 (0.0-0.2) X10*3/uL Abs Immat Gran (auto) 0.01 (0.00-0.03) X10*3/uL Absolute Neuts (auto) 3.1 (2.0-8.3) X10*3/uL Absolute Nucleated RBC 0.000 (0.0-0.012) X10*3/uL Nucleated RBC % (auto) 0.0 (0.0-0.2) /100WBC D-Dimer NG/ML Sodium 139 (135-145) mmol/L Potassium 4.6 (3.3-5.1) mmol/L Chloride 106 (96-108) mmol/L Carbon Dioxide 26 (22-29) mmol/L Anion Gap 12 (12-20) BUN 7 L (9-16) mg/dL Creatinine 0.79 (0.5-1.4) mg/dL Estim Creat Clear Calc 100.2 Estimated GFR > 60 Random Glucose 96 (60-115) mg/dL Calcium 10.1 D (8.4-10.2) mg/dL Total Bilirubin 0.3 (0.0-1.0) mg/dL AST 17 (5-31) U/L ALT 17 (0-31) U/L Alkaline Phosphatase 76 (39-117) U/L Troponin I High Sens (<3.5-17.0) ng/L Total Protein 7.5 (6.5-8.0) g/dL Albumin 4.5 (3.5-5.0) g/dL COVID-19 ([facility]) Negative (Negative) COVID-19 Clin Com See Note 11/10/20 11/10/20 Range/Units 14:36 15:09 WBC (4.8-10.8) X10*3/uL RBC (4.20-5.50) X10*6/uL Hgb (12.0-16.0) g/dl Hct (37-47) % MCV (80-98) fL MCH (27.0-33.0) pg MCHC (31.0-35.0) g/dl RDW (11.0-16.0) % Plt Count (160-400) X10*3/uL MPV (9.4-12.3) fL Immature Gran % (Auto) (0.0-0.4) % Neut % (Auto) (45-73) % Lymph % (Auto) (20-40) % [place] % (Auto) (2-11) % Eos % (Auto) (0-4) % Baso % (Auto) (0-2) % Lymph # (Auto) (1.2-4.9) X10*3/uL [place] # (Auto) (0.1-1.2) X10*3/uL Eos # (Auto) (0.0-0.4) X10*3/uL Baso # (Auto) (0.0-0.2) X10*3/uL Abs Immat Gran (auto) (0.00-0.03) X10*3/uL Absolute Neuts (auto) (2.0-8.3) X10*3/uL Absolute Nucleated RBC (0.0-0.012) X10*3/uL Nucleated RBC % (auto) (0.0-0.2) /100WBC D-Dimer < 200 NG/ML Sodium (135-145) mmol/L Potassium (3.3-5.1) mmol/L Chloride (96-108) mmol/L Carbon Dioxide (22-29) mmol/L Anion Gap (12-20) BUN (9-16) mg/dL Creatinine (0.5-1.4) mg/dL Estim Creat Clear Calc Estimated GFR Random Glucose (60-115) mg/dL Calcium (8.4-10.2) mg/dL Total Bilirubin (0.0-1.0) mg/dL AST (5-31) U/L ALT (0-31) U/L Alkaline Phosphatase (39-117) U/L Troponin I High Sens < 3.5 (<3.5-17.0) ng/L Total Protein (6.5-8.0) g/dL Albumin (3.5-5.0) g/dL COVID-19 ([facility]) (Negative) COVID-19 Clin Com ECG Data Interpretation: EKG shows normal sinus rhythm at a rate of 81 beats per minute. [place] interval 132, QRS 88. QTC 436. Normal axis. No ST elevation or depression, no Q-waves, no T-wave changes. Discharge Plan Discharge Clinical Impression: Otitis media Qualifiers: Otitis media type: suppurative Chronicity: acute Laterality: right Recurrence: non-recurrent Spontaneous tympanic membrane rupture: without spontaneous rupture Qualified Code(s): H66.001 - Acute suppurative otitis media without spontaneous rupture of ear drum, right ear Patient Disposition: Home, Self-Care Instructions: Serous Otitis Media (ED) Additional Instructions: You have an infection behind the eardrum. Right ear. We will treat this with antibiotics. I will send this to your pharmacy. chest x-ray, COVID, and all of your labs are negative. If you have worsening shortness of breath, if you have chest pain or other new or concerning symptoms please return to the emergency room. Please call your primary care provider for follow-up appointmen 10 days. Tiene isrrael infecci?n detr?s del t?mpano. Oreja derecha. Trataremos esto con antibi?ticos. Enviar? esto a garnica farmacia. radiograf?a de t?rax, COVID y todos jacques an?lisis de laboratorio son negativos. Si garnica dificultad para respirar empeora, si tiene dolor en el pecho u otros s?ntomas nuevos o preocupantes, regrese a la nellie de emergencias. Llame a garnica proveedor de atenci?n primaria para citas de seguimiento 10 d?as. Prescriptions: New amoxicillin-pot clavulanate [Augmentin] 875-125 mg tablet 1 tab PO BID 10 Days Qty: 20 RF: 0 No Action famotidine [Pepcid] 20 mg tablet 20 mg PO DAILY Qty: 20 RF: 0 Interventions: ED Discharge Assessment Last Done: 11/10/20 16:28 Discharge Date/Time: 11/10/20 16:29 Print Language: Congolese
[2020-11-10 14:42] LABS: MANUAL DIFF FLAG NO
[2020-11-10 14:44] LABS: Basophils Percent Auto 0.5 % (0-2); Eosinophils Percent Auto 0.3 % (0-4); Hemoglobin 15.2 g/dl (12.0-16.0); Imm Gran Abs Auto 0.01 X10*3/uL (0.00-0.03); Imm Gran Pct Auto 0.2 % (0.0-0.4); Lymphocytes Absolute Auto 2.3 X10*3/uL (1.2-4.9); Mean Corpuscular HGB Conc 34.5 g/dl (31.0-35.0); Mean Corpuscular Hemoglobin 31.9 pg (27.0-33.0); Mean Corpuscular Volume 92.4 fL (80-98); Mean Platelet Volume 8.8 fL (9.4-12.3); Monocytes Absolute Auto 0.4 X10*3/uL (0.1-1.2); Monocytes Percent Auto 7.3 % (2-11); Neutrophils Absolute Auto 3.1 X10*3/uL (2.0-8.3); Neutrophils Percent Auto 52.7 % (45-73); Platelet Count 367 X10*3/uL (160-400); Red Blood Count 4.76 X10*6/uL (4.20-5.50); Red Cell Distribution Width 11.8 % (11.0-16.0); White Blood Count 5.9 X10*3/uL (4.8-10.8)
[2020-11-10 15:02] LABS: COVID-19 Test Negative (Negative); IDNOW Serial# 9DD0AD1C
[2020-11-10 15:16] LABS: Alanine Aminotransferase 17 U/L (0-31); Albumin Level 4.5 g/dL (3.5-5.0); Alkaline Phosphatase 76 U/L (39-117); Anion Gap 12 (12-20); Aspartate Amino Transferase 17 U/L (5-31); Bilirubin Total 0.3 mg/dL (0.0-1.0); Blood Urea Nitrogen 7 mg/dL (9-16); Calcium 10.1 mg/dL (8.4-10.2); Carbon Dioxide 26 mmol/L (22-29); Chloride 106 mmol/L (96-108); Creatinine Clr Calc Pharmacy 100.2; Estimated Glomerular Filt Rate > 60; Glucose Random 96 mg/dL (60-115); Potassium 4.6 mmol/L (3.3-5.1); Sodium 139 mmol/L (135-145); Total Protein 7.5 g/dL (6.5-8.0)
[2020-11-10 15:18] LABS: Troponin-I High Sensitivity < 3.5 ng/L (<3.5-17.0)
[2020-11-10 15:31] LABS: D Dimer < 200 NG/ML
== END 2020-11-10 16:29 | disposition home or self-care (01) ==
PROVIDERS: Physician Assistant; Emergency Provider Emergency Medicine
DX: H66.001 Acute suppurative otitis media without spontaneous rupture of ear drum, right ear (principal); R06.00 Dyspnea, unspecified; Z79.899 Other long term (current) drug therapy; Z20.822 Contact with and (suspected) exposure to COVID-19
CPT/HCPCS: 36415; 71046; 80053; 84484; 85025; 85379; 87635; 93005; 99283; 99284

== ENCOUNTER 2020-11-14 12:40 | Emergency (ER) | payer MEDICAID, SELFPAY ==
--- NOTE | ~2020-11-14 | CT_ITS ---
EXAMINATION: CT HEAD WITHOUT CONTRAST CLINICAL INFORMATION: Headache. COMPARISON: None TECHNIQUE: Contiguous axial imaging was performed from the skull base to vertex without intravenous administration of contrast. Multiplanar reformatted images are submitted. This CT examination was performed using dose optimization techniques as appropriate, variously including the following: *Automated exposure control *Adjustment of mA and/or kV according to patient size (this includes techniques or standardized protocols for targeted exams where dose is matched to indication/reason for exam; i.e. extremities or head) *Use of iterative reconstruction technique DLP: 599 mGy-cm FINDINGS: There is no evidence of acute intracranial hemorrhage or territorial infarction. No abnormal mass effect or midline shift is seen. Sousa to white matter differentiation is well preserved. No extra-axial fluid collections are identified. The ventricles are normal in size. There is no abnormal attenuation within the brain parenchyma. The osseous structures and soft tissues are normal. Physiologic dural calcifications are incidentally noted towards the vertex and anterior falx. The mastoid air cells and visualized portions of the paranasal sinuses are well aerated. CT/CT head/brain wo con IMPRESSION: No acute intracranial pathology.
[2020-11-14 14:02] VITALS: BP 118/75; PULSE 91; RESP 18; TEMP 36.9; O2SAT 100; BMI 26.9
--- NOTE | 2020-11-14 16:14 | ED.GENADULT ---
HPI - General Adult General Chief complaint: Ear Problems Stated complaint: headache Time Seen by Provider: 11/14/20 14:15 Source: patient Mode of arrival: ambulatory Limitations: no limitations History of Present Illness HPI narrative: Patient presents to the ED far headache described as pressure, feeling tired, and bodyaches. Patient was seen here 3 days and diagnosed as otitis media. Patient states she was placed on antibiotics and has been on it for 3 days. Patient states 3 days ago she told provider that she had headache with mild ear discomfort and was diagnosed as ear infection. patient denies any head trauma, fever, chills, neck stiffness, photophobia, dizziess, chest pain, slurred speechm, change/loss of vision, slurred speech, paralysis of extremities, or facial droop. Related Data Previous Rx's Medication Instructions Recorded famotidine 20 mg tablet (Pepcid) 20 mg PO DAILY #20 tab 10/21/20 amoxicillin 875 mg-potassium 1 tab PO BID 10 Days #20 tab 11/10/20 clavulanate 125 mg tablet (Augmentin) naproxen 500 mg tablet 500 mg PO BID PRN #20 tab 11/14/20 Allergies Allergy/AdvReac Type Severity Reaction Status Date / Time No Known Allergies Allergy Verified 10/21/20 10:46 Review of Systems Review of Systems: Yes all other systems are reviewed and are negative Constitutional: Constitutional: Reports as per HPI, Reports no additional constitutional complaints and Reports headache(s) Eyes: Eyes: Reports as per HPI and Reports no additional eye complaints ENT: Reports system reviewed and no additional complaints, except as documented, Reports as per HPI and Reports headache(s) Cardiovascular: Cardiovascular: Reports as per HPI and Reports no additional cardiovascular complaints Respiratory: Respiratory: Reports as per HPI and Reports no additional respiratory complaints Gastrointestinal: Gastrointestinal: Reports as per HPI and Reports no additional gastrointestinal complaints Genitourinary: Genitourinary: Reports no additional female genitourinary complaints and Reports as per HPI Musculoskeletal: Musculoskeletal: Reports no additional musculoskeletal complaints and Reports as per HPI Neurologic: Reports system reviewed and no additional complaints, except as documented, Reports as per HPI and Reports headache(s) Psychiatric: Psychiatric: Reports no additional psychiatric complaints and Reports as per HPI [facility] Past Medical History Medical History (Updated 11/15/20 @ 00:02 by Fausto Pal) No known health problems Social History Social History Alcohol intake: never Patient Tobacco Use Status: Never used Tobacco Advance Directives: No Advance Directives Information Provided: No Patient : Yes Physical Exam Vital Signs: Vital Signs: Last Vital Signs Temp 98.5 F 11/14/20 14:02 Pulse 91 11/14/20 14:02 Resp 18 11/14/20 14:02 BP 118/75 11/14/20 14:02 Pulse Ox 100 11/14/20 14:02 Body Mass Index 26.9 Const: General: cooperative, healthy appearing, comfortable, no acute distress, well developed, alert and awake Orientation/consciousness: oriented to time and patient oriented x3 HENMT: Head: Yes normal to inspection, Yes No palpable skull fracture present, Yes normocephalic, Yes atraumatic and No abrasion Ears: hearing grossly normal bilaterally, external ears normal, TM's normal bilaterally, TM normal on the right, TM normal on the left, EAC's normal, mastoids normal and no periauricular adenopathy Eyes: Other: negative for photophobia General: appearance normal, both eyes and all related structures Neck: Neck: Yes normal visual inspection, Yes full ROM, Yes no lymphadenopathy, Yes no meningeal signs, Yes trachea midline, Yes supple and No tender Chest: Chest palpation & inspection: normal inspection of the chest and normal palpation of entire chest wall Resp: Effort & Inspection: normal respiratory effort and able to speak in complete sentences Auscultation: clear to auscultation bilaterally Cardio: Jugular venous distension: no JVD Heart sounds: S1 normal heart sound present and S2 normal heart sound present GI: Inspection: Yes normal to inspection and No abdominal wall ecchymosis Palpation (GI): Soft to palpation, not firm, nontender, no guarding and not rigid : General: No CVA tenderness and Yes no CVA tenderness Back/Spine/Pelvis: Back: no CVA tenderness, No CVA tenderness and No back tenderness Skin: General skin exam: no rashes or lesions noted and elasticity normal Neuro: General: oriented to time, patient oriented x3, gait normal, no meningeal signs and CN's II-XI intact bilaterally Cranial nerves: Yes CN's II-XII intact bilaterally Extrem: General: Yes normal to inspection and Yes full ROM Psych: Appearance: grossly normal, well kempt and not disheveled Course Course Course Narrative: history and physical exam does not indicate any mastoiditis. Will do covid swab. Head CT scan will be ordered. Reevaluation(s) Reevaluation #1: Head CT scan came back normal. Covid swab came back negative. patient given naproxen. Headache resolved after recieving meds. Time: 16:49 Medical Decision Making MDM Narrative Medical decision making narrative: Headache, otitis media Lab Data Labs: Lab Results 11/14/20 Range/Units 15:07 Coronavirus (PCR) NEGATIVE (Negative) Influenza Type A (PCR) NEGATIVE (Negative) Influenza Type B (PCR) NEGATIVE (Negative) RSV RNA Qual (PCR) NEGATIVE (Negative) Discharge Plan Discharge Clinical Impression: Otitis media, Headache Patient Disposition: Home, Self-Care Instructions: Ear Infection (ED), General Headache (ED) Prescriptions: New naproxen 500 mg tablet 500 mg PO BID PRN (Reason: pain) Qty: 20 RF: 0 No Action famotidine [Pepcid] 20 mg tablet 20 mg PO DAILY Qty: 20 RF: 0 amoxicillin-pot clavulanate [Augmentin] 875-125 mg tablet 1 tab PO BID 10 Days Qty: 20 RF: 0 Stand Alone Forms: Work/School Release Interventions: ED Discharge Assessment Last Done: 11/14/20 17:21 Discharge Date/Time: 11/14/20 17:22 Print Language: Kittitian
[2020-11-14 16:43] LABS: Influenza A PCR NEGATIVE (Negative); Influenza B PCR NEGATIVE (Negative); Resp Syncy Virus RNA Qual PCR NEGATIVE (Negative); SARS COV2 PCR INHOUSE NEGATIVE (Negative)
[2020-11-14] MEDS: Ibuprofen 800 MG TABLET PO (16:57)
--- NOTE | 2020-11-14 17:20 | PC.NURSE ---
PT MEDICATED ORDERED. TOLERATING PO. NO ACUTE DISTRESS NOTED. AGREEABLE TO DC HOME.
== END 2020-11-14 17:22 | disposition home or self-care (01) ==
PROVIDERS: Physician Assistant; Emergency Provider Internal Medicine; PCP Family Medicine
DX: R51.9 Headache, unspecified (principal); H66.90 Otitis media, unspecified, unspecified ear; Z20.822 Contact with and (suspected) exposure to COVID-19
CPT/HCPCS: 0241U; 36415; 70450; 99283; 99284

== ENCOUNTER 2021-02-15 14:49 | Outpatient (REF) | payer MEDICAID, SELFPAY ==
--- NOTE | ~2021-02-15 | CT_ITS ---
EXAMINATION: CT HEAD WITHOUT CONTRAST CLINICAL INFORMATION: Headache COMPARISON: Previous head CT October 2020 TECHNIQUE: Contiguous axial imaging was performed from the skull base to vertex without intravenous administration of contrast. This CT examination was performed using dose optimization techniques as appropriate, variously including the following: *Automated exposure control *Adjustment of mA and/or kV according to patient size (this includes techniques or standardized protocols for targeted exams where dose is matched to indication/reason for exam; i.e. extremities or head) *Use of iterative reconstruction technique DLP: 713 mGy-cm FINDINGS: There is no evidence of acute intracranial hemorrhage or territorial infarction. No abnormal mass effect or midline shift is seen. Sousa to white matter differentiation is well preserved. No extra-axial fluid collections are identified. The ventricles are normal in size. There is no abnormal attenuation within the brain parenchyma. The osseous structures and soft tissues are normal. The mastoid air cells and visualized portions of the paranasal sinuses are clear. CT/CT head/brain wo con IMPRESSION: Unremarkable exam.
== END 2021-02-15 14:50 | disposition home or self-care (01) ==
LOC: HO.CT 14:49
PROVIDERS: PCP Family Medicine; Visit Provider Psychiatry & Neurology Neurology
DX: R51.9 Headache, unspecified (principal)
CPT/HCPCS: 70450